=== PATIENT | female | born 2000 | race African-American/Black ===

== ENCOUNTER 2018-02-22 23:52 | Emergency (ER) | payer OTHER, SELFPAY ==
[2018-02-23] MEDS ORDERED: Acetaminophen 1,000 MG in Premix Bag 1 BAG IVPB SCH (00:15)
[2018-02-23 00:16] LABS: #Basophils 0.1 thou/uL (0.0-0.2); #Eosinphils 0.1 thou/uL (0.0-0.7); #Lymphocytes 2.8 thou/uL (1.20-3.40); #Monocytes 1.1 thou/uL (0.11-0.59); #Neutrophils 14.8 thou/uL (1.40-6.50); %Basophils 0.3 % (0.0-1.0); %Eosinophils 0.4 % (0.0-10.0); %Monocytes 5.6 % (0.0-4.0); %Neutrophils 78.7 % (31.0-61.0); Mean Corpuscular HGB CONC 35.8 g/dL (32.0-36.0); Mean Corpuscular Volume 83.6 fL (78.0-98.0); Mean Platelet Volume 7.3 fL (7.4-10.4); Platelet Count 321 thou/uL (130-400); RBC Distribution Width 12.5 % (11.5-14.5); Red Blood Cell (RBC) Count 4.35 mill/uL (4.00-5.20); White Blood Cell (WBC) Count 18.8 thou/uL (4.8-10.8)
[2018-02-23 00:31] LABS: ALT (SGPT) 28 U/L (8-55); AST (SGOT) 39 U/L (5-30); Albumin 4.5 g/dL (3.5-5.0); Alkaline Phosphatase 63 U/L (40-150); Anion Gap 14 mmol/L (10-20); BUN (Urea Nitrogen) 10 mg/dL (8.4-21.0); Bilirubin, Total 0.5 mg/dL (0.2-1.2); Calc. Creatinine Clearance 0 mL/min (70-130); Calcium 9.3 mg/dL (7.8-10.44); Carbon Dioxide 21 mmol/L (22-29); Chloride 105 mmol/L (98-107); Estimated GFR-MDRD Greater than 90; Globulin 2.8 g/dL (2.4-3.5); Glucose 143 mg/dL (70-105); Lipase 10 U/L (8-78); Potassium 3.4 mmol/L (3.5-5.1); Protein, Total 7.3 g/dL (6.0-8.3); Sodium 137 mmol/L (136-145)
[2018-02-23 00:33] LABS: BHCG - Serum Negative (NEGATIVE); Pregs Control Background? CLEAR/WHITE (CLR/WHITE); Pregs Control Bar Appear? YES (CONTROL BAR)
[2018-02-23 00:34] LABS: INR-International Normal Ratio 1.1; PTT 25.5 SEC (22.9-36.1)
[2018-02-23] MEDS ORDERED: Lidocaine 1% w/Epinephrine 1:100K 20 ML VIAL ONE (00:46)
[2018-02-23] MEDS ORDERED: Ketorolac Tromethamine 60 MG/2 ML VIAL ONE (00:46)
[2018-02-23] MEDS ORDERED: CEFAZOLIN 2 GM/50 ML BAG ONE (00:47)
[2018-02-23] MEDS ORDERED: Adacel (T-DAP) 0.5 ML VIAL ONE (00:47)
[2018-02-23] MEDS ORDERED: Proparacaine 0.5% Opth 15 ML BOT ONE (01:05)
[2018-02-23] MEDS ORDERED: Fluorescein Opthalmic Strip ONE (01:05)
[2018-02-23 01:35] LABS: Acetaminophen Less than 6.0 mcg/mL (10.0-30.0); Alcohol Less than 10 mg/dL (Less than 10); Salicylate Less than 8.0 mg/dL (15.0-30.0)
[2018-02-23] MEDS ORDERED: Morphine 2 MG/ML SYRINGE ONE (02:05)
[2018-02-23] MEDS ORDERED: Ondansetron PF 4 MG/2 ML Vial ONE (02:05)
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
== END 2018-02-23 03:15 | disposition short-term general hospital (02) ==
LOC: ERS 23:52
DX: S02.19XA Other fracture of base of skull, initial encounter for closed fracture (principal); S42.001A Fracture of unspecified part of right clavicle, initial encounter for closed fracture; S05.41XA Penetrating wound of orbit with or without foreign body, right eye, initial encounter; V43.52XA Car driver injured in collision with other type car in traffic accident, initial encounter; Y92.411 Interstate highway as the place of occurrence of the external cause
CPT/HCPCS: 12014; 70450; 70486; 71260; 72125; 74177; 80053; 80307; 83605; 83690; 84703; 85025; 85610; 85730; 90471; 90715; 93005; 96365; 96375; G0390; J0131; J1885; J2001; J2270; J2405

== ENCOUNTER 2018-06-24 12:34 | Emergency (ER) | payer SELFPAY ==
[2018-06-24 13:14] LABS: Bilirubin Negative (Negative); Blood, Urine Negative (Negative); Clarity CLOUDY (Clear); Glucose, Urine (Dipstick) Negative (Negative); Leukocyte Negative (Negative); Nitrite Negative (Negative); Protein, Urine (Dipstick) 30 mg/dL (Neg-Trace); Specific Gravity, Urine 1.031 (1.002-1.036)
[2018-06-24 13:16] LABS: Bacteria/HPF None Seen HPF (None Seen); RBC/HPF 0-3 HPF (0-3)
[2018-06-24 13:19] LABS: Pathc Cast-AUWi Flag 3.53 (0-2.49)
[2018-06-24 13:21] LABS: Pregnancy Test - Urine (BHCG) Negative (Negative); Pregu Control Background? CLEAR/WHITE (CLR/WHITE); Pregu Control Bar Appear? YES (CONTROL BAR); Specific Gravity 1.031 (1.002-1.036)
[2018-06-24 13:40] LABS: Hyaline Casts/LPF 0-3 HYALINE CAST LPF (0-3 Hyaline)
[2018-06-24 14:38] LABS: #Lymphocytes 1.5 thou/uL (1.20-3.40); #Monocytes 0.4 thou/uL (0.11-0.59); #Neutrophils 1.2 thou/uL (1.40-6.50); %Basophils 0.7 % (0.0-1.0); %Eosinophils 0.1 % (0.0-10.0); %Lymphocytes 48.9 % (28.0-48.0); %Monocytes 12.6 % (0.0-4.0); %Neutrophils 37.7 % (31.0-61.0); Hemoglobin 13.1 g/dL (12.0-16.0); Mean Corpuscular HGB CONC 36.2 g/dL (32.0-36.0); Mean Corpuscular Hemoglobin 30.6 pg (25.0-35.0); Mean Corpuscular Volume 84.7 fL (78.0-98.0); Mean Platelet Volume 7.5 fL (7.4-10.4); Platelet Count 211 thou/uL (130-400); RBC Distribution Width 12.1 % (11.5-14.5); Red Blood Cell (RBC) Count 4.29 mill/uL (4.00-5.20); White Blood Cell (WBC) Count 3.1 thou/uL (4.8-10.8)
[2018-06-24] MEDS ORDERED: Ketorolac Tromethamine 60 MG/2 ML VIAL ONE (14:51)
[2018-06-24 15:00] LABS: ALT (SGPT) 14 U/L (8-55); AST (SGOT) 22 U/L (5-34); Albumin 4.6 g/dL (3.5-5.0); Alkaline Phosphatase 58 U/L (40-150); Anion Gap 13 mmol/L (10-20); BUN (Urea Nitrogen) 8 mg/dL (7.0-18.7); Bilirubin, Total 0.5 mg/dL (0.2-1.2); Calc. Creatinine Clearance 0 mL/min (70-130); Calcium 9.3 mg/dL (7.8-10.44); Carbon Dioxide 28 mmol/L (22-29); Chloride 102 mmol/L (98-107); Estimated GFR-MDRD Greater than 90; Globulin 2.9 g/dL (2.4-3.5); Glucose 99 mg/dL (70-105); Potassium 3.5 mmol/L (3.5-5.1); Protein, Total 7.5 g/dL (6.0-8.3); Sodium 139 mmol/L (136-145)
--- NOTE | 2018-06-24 15:29 | CT ---
CT OF ABDOMEN AND PELVIS PERFORMED WITHOUT CONTRAST ENHANCEMENT: Date: 06/24/18 HISTORY: Right flank pain. FINDINGS: The lung bases are clear of infiltrates. The liver, spleen, pancreas, and gallbladder regions appear unremarkable given the limitations of a n oncontrast study. Right and left adrenal glands, and right and left kidneys are normal in size. There are no renal calc beth demonstrated and there is no evidence for obstruction. Ureters are nondilated and I do not see an y ureteral calculus. There is no significant periaortic or mesenteric adenopathy. Small mesenteric nodes are nonspecific. CT of pelvis was performed without contrast enhancement. The low position of the cecum makes it diffi cult to evaluate, but what appears to be visualized portions of the appendix are unremarkable. No barbie e fluid. IMPRESSION: No evidence of renal or ureteral calculi. No acute abnormalities of the abdomen or pelvis. Appendix i s not well identified, but I see no CT evidence for appendicitis. POS: [facility]
== END 2018-06-24 15:46 | disposition home or self-care (01) ==
LOC: ERS 12:34
DX: M54.5 Low back pain (principal); R11.2 Nausea with vomiting, unspecified
CPT/HCPCS: 36415; 74176; 80053; 81003; 81015; 81025; 85025; 96372; J1885

== ENCOUNTER 2018-11-06 15:52 | Emergency (ER) | payer SELFPAY ==
[~2018-11-06 15:52] MED LIST: ISOVUE-370 76%-LOCM 1 ML ONE
[2018-11-06] MEDS ORDERED: Morphine 4 MG/ML VIAL ONE (16:02)
[2018-11-06] MEDS ORDERED: Ondansetron PF 4 MG/2 ML Vial ONE (16:02)
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
[2018-11-06 16:25] LABS: #Basophils 0.1 thou/uL (0.0-0.2); #Eosinphils 0.1 thou/uL (0.0-0.7); #Lymphocytes 2.5 thou/uL (1.20-3.40); #Monocytes 0.6 thou/uL (0.11-0.59); #Neutrophils 3.4 thou/uL (1.40-6.50); %Basophils 1.2 % (0.0-1.0); %Eosinophils 1.3 % (0.0-10.0); %Lymphocytes 37.1 % (28.0-48.0); %Monocytes 9.3 % (0.0-4.0); %Neutrophils 51.1 % (31.0-61.0); Hemoglobin 12.7 g/dL (12.0-16.0); Mean Corpuscular HGB CONC 36.5 g/dL (32.0-36.0); Mean Corpuscular Hemoglobin 31.2 pg (25.0-35.0); Mean Corpuscular Volume 85.4 fL (78.0-98.0); Mean Platelet Volume 7.4 fL (7.4-10.4); Platelet Count 327 thou/uL (130-400); RBC Distribution Width 12.6 % (11.5-14.5); Red Blood Cell (RBC) Count 4.06 mill/uL (4.00-5.20); White Blood Cell (WBC) Count 6.6 thou/uL (4.8-10.8)
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
[2018-11-06 16:28] LABS: BHCG - Serum Negative (NEGATIVE); Pregs Control Background? CLEAR/WHITE (CLR/WHITE); Pregs Control Bar Appear? YES (CONTROL BAR)
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
[2018-11-06 16:32] LABS: ALT (SGPT) 14 U/L (8-55); AST (SGOT) 17 U/L (5-34); Albumin 4.3 g/dL (3.5-5.0); Alkaline Phosphatase 53 U/L (40-150); Anion Gap 12 mmol/L (10-20); BUN (Urea Nitrogen) 7 mg/dL (7.0-18.7); Bilirubin, Total 0.5 mg/dL (0.2-1.2); Calc. Creatinine Clearance 0 mL/min (70-130); Calcium 9.4 mg/dL (7.8-10.44); Carbon Dioxide 22 mmol/L (22-29); Chloride 107 mmol/L (98-107); Estimated GFR-MDRD Greater than 90; Globulin 2.3 g/dL (2.4-3.5); Glucose 95 mg/dL (70-105); Lipase 7 U/L (8-78); Potassium 3.9 mmol/L (3.5-5.1); Protein, Total 6.6 g/dL (6.0-8.3); Sodium 137 mmol/L (136-145)
[2018-11-06] MEDS ORDERED: Ketorolac Tromethamine 30 MG/ML VIAL ONE (16:56)
[2018-11-06] MEDS ORDERED: Adacel (T-DAP) 0.5 ML SYRINGE ONE (17:11)
== END 2018-11-06 17:30 | disposition critical access hospital (66) ==
LOC: ERS 15:52
DX: S70.11XA Contusion of right thigh, initial encounter (principal); S40.212A Abrasion of left shoulder, initial encounter; S40.211A Abrasion of right shoulder, initial encounter; M54.5 Low back pain; Y04.8XXA Assault by other bodily force, initial encounter
CPT/HCPCS: 70450; 71260; 72125; 74177; 80053; 83605; 83690; 84703; 85025; 90471; 90715; 93005; 96374; 96375; G0390; J1885; J2270; J2405

== ENCOUNTER 2018-11-25 11:37 | Observation (INO) | payer SELFPAY ==
[2018-11-25] MEDS ORDERED: Morphine 4 MG/ML VIAL ONE ×2 (11:54→12:36)
[2018-11-25] MEDS ORDERED: Ondansetron PF 4 MG/2 ML Vial ONE ×2 (11:55→12:36)
[2018-11-25 12:24] LABS: #Basophils 0.1 thou/uL (0.0-0.2); #Eosinphils 0.1 thou/uL (0.0-0.7); #Lymphocytes 1.7 thou/uL (1.20-3.40); #Monocytes 0.8 thou/uL (0.11-0.59); #Neutrophils 5.4 thou/uL (1.40-6.50); %Basophils 0.6 % (0.0-1.0); %Eosinophils 0.7 % (0.0-10.0); %Lymphocytes 21.6 % (28.0-48.0); %Monocytes 9.5 % (0.0-4.0); %Neutrophils 67.5 % (31.0-61.0); Hemoglobin 12.4 g/dL (12.0-16.0); Mean Corpuscular HGB CONC 36.3 g/dL (32.0-36.0); Mean Corpuscular Hemoglobin 31.1 pg (25.0-35.0); Mean Corpuscular Volume 85.8 fL (78.0-98.0); Mean Platelet Volume 7.4 fL (7.4-10.4); Platelet Count 273 thou/uL (130-400); RBC Distribution Width 12.7 % (11.5-14.5); Red Blood Cell (RBC) Count 3.99 mill/uL (4.00-5.20)
[2018-11-25 12:31] LABS: INR-International Normal Ratio 1.1; PTT 33.4 SEC (22.9-36.1); Prothrombin Time 13.9 SEC (12.0-14.7)
[2018-11-25 12:39] LABS: ALT (SGPT) 16 U/L (8-55); AST (SGOT) 20 U/L (5-34); Albumin 4.6 g/dL (3.5-5.0); Alkaline Phosphatase 52 U/L (40-150); Anion Gap 11 mmol/L (10-20); BUN (Urea Nitrogen) 11 mg/dL (7.0-18.7); Bilirubin, Total 0.6 mg/dL (0.2-1.2); CK (CPK) 532 U/L (29-168); Calc. Creatinine Clearance 0 mL/min (70-130); Calcium 9.3 mg/dL (7.8-10.44); Carbon Dioxide 22 mmol/L (22-29); Chloride 106 mmol/L (98-107); Estimated GFR-MDRD Greater than 90; Globulin 2.3 g/dL (2.4-3.5); Glucose 100 mg/dL (70-105); Potassium 3.4 mmol/L (3.5-5.1); Protein, Total 6.9 g/dL (6.0-8.3); Sodium 136 mmol/L (136-145)
[2018-11-25 12:41] LABS: BHCG - Serum Negative (NEGATIVE); Pregs Control Background? CLEAR/WHITE (CLR/WHITE); Pregs Control Bar Appear? YES (CONTROL BAR)
[2018-11-25 13:42] LABS: Bilirubin Negative (Negative); Blood, Urine 3+ (Negative); Clarity Clear (Clear); Glucose, Urine (Dipstick) Normal (Negative); Leukocyte 25 Leu/uL (Negative); Nitrite Negative (Negative); Protein, Urine (Dipstick) 30 mg/dL (Neg-Trace); RBC/HPF Greater than 50 HPF (0-3)
[2018-11-25 13:45] LABS: Bacteria/HPF 1+ HPF (None Seen)
[2018-11-25] MEDS ORDERED: Fentanyl 100 MCG/2 ML VIAL ONE ×2 (13:46→15:51)
--- NOTE | 2018-11-25 14:17 | ULT ---
Exam: Pelvic ultrasound including Transabdominal, Transvaginal, And Vascular Duplex with color and spectral Doppler imaging: HISTORY: Active vaginal bleeding COMPARISON: None FINDINGS: The uterus is 6.9 x 3.5 x 4.1 cm Endometrial thickness:0.7 cm Right ovary:2.9 x 1.3 x 3.3 cm Left ovary:2.6 x 1.5 x 3.0 cm No abscess or significant abnormal fluid collection. Vascular duplex examination demonstrates no evidence for ovarian torsion IMPRESSION: No significant acute process within the pelvis
--- NOTE | 2018-11-25 15:32 | CT ---
EXAM: Abdomen and pelvic CT scan without contrast: HISTORY: Abdominal pain and cramping vomiting blood COMPARISON: 11/06/2018 FINDINGS: The visualized lung bases are clear. Liver: Unremarkable. Gallbladder:Unremarkable. Pancreas:Unremarkable Spleen:Unremarkable. Adrenal glands:Unremarkable. Kidneys:No renal calculus or acute obstruction. No solid or cystic renal mass. No evidence for bowel obstruction. No CT evidence for acute appendicitis. The urinary bladder is unremarkable. Trace fluid in the pelvis. No abscess, adenopathy, or abnormal fluid collection within the abdomen or pelvis. IMPRESSION: Trace fluid in the pelvis. No significant acute process.
[2018-11-25] MEDS ORDERED: Pantoprazole 40 MG VIAL ONE (16:05)
[2018-11-25] MEDS ORDERED: Ondansetron ODT 4 MG TAB SL PRN (19:15)
[2018-11-25] MEDS ORDERED: Ondansetron PF 4 MG/2 ML Vial IVP PRN (19:15)
[2018-11-25] MEDS ORDERED: Sodium Chloride 0.9% 1,000 ML IV SCH (19:15)
[2018-11-25] MEDS ORDERED: Morphine 2 MG/ML SYRINGE SLOW IVP PRN (19:16)
[2018-11-25] MEDS ORDERED: Loperamide HCl 2 MG CAP PO PRN (19:35)
[2018-11-25] MEDS ORDERED: Senokot S 8.6-50 MG TAB PO PRN (19:35)
[2018-11-25] MEDS ORDERED: Zolpidem Tartrate 5 MG TAB PO PRN (19:35)
[2018-11-25] MEDS ORDERED: hydrALAZINE 20 MG/ML VIAL SLOW IVP PRN (19:35)
[2018-11-25] MEDS ORDERED: Sodium Chloride 0.65% Nasal 44 ML BOT EA NARE PRN (19:35)
[2018-11-25] MEDS ORDERED: Artificial Tears 18 DROP/0.9 ML EA EYE PRN (19:35)
[2018-11-25] MEDS ORDERED: Acetaminophen 325 MG TAB PO PRN (19:35)
[2018-11-25] MEDS ORDERED: Diabetic Tussin 200 MG/10 ML UDCUP PO PRN (19:35)
[2018-11-25] MEDS ORDERED: Ondansetron ODT 4 MG TAB PO PRN (19:35)
[2018-11-25] MEDS ORDERED: Loratadine 10 MG TAB PO PRN (19:35)
[2018-11-25] MEDS ORDERED: Bisacodyl 10 MG SUPP PR PRN (19:35)
[2018-11-25] MEDS ORDERED: Calcium Carbonate 500 MG ChewTAB PO PRN (19:35)
[2018-11-25] MEDS ORDERED: HYDROcodone/Acetaminophen 5/325 mg Tablet PO PRN (19:35)
[2018-11-25] MEDS ORDERED: Cepastat Lozenges 1 LOZ PO PRN (19:35)
[2018-11-25 19:38] VITALS: BMI 31.1
--- NOTE | 2018-11-25 20:22 | HP ---
PRIMARY CARE PHYSICIAN: [facility] Call admission. REASON FOR ADMISSION: Abdominal pain and hematemesis. HISTORY OF PRESENT ILLNESS: A 18-year-old female, who reports that about a month ago she had a miscarriage. She did not go to follow up afterward. She was having brownish, thick, foul-smelling vaginal discharge. She was expecting her menstrual cycle in next week, but she started bleeding this week. She was having lower abdominal pain since miscarriage. She was not having any fever or chills. She did not notice any melenic stool or any hematochezia. She denies any epigastric abdominal pain. Lately, she was taking Advil PM on every day basis twice a day for sleep and pain relief, but her pain was not improving. Her intensity of pain in lower part of abdomen is about 10/10. In the emergency room, the patient had ultrasound of pelvis and CT abdomen and pelvis, which essentially were not showing any acute process. Pelvic ultrasound was unremarkable. There was no ovarian torsion. Abdomen and pelvis CT scan showed free fluid in the pelvic area without any other process. The patient was requiring several doses of pain medication. She was also treated with Protonix 40 mg and Zofran, and subsequently the patient was admitted to the hospital. When they checked stool for guaiac in the emergency room, it was positive and the patient also reported that she was having hematemesis. She was throwing up blood at home, and she was feeling weak and dizzy. In the emergency room, she was hemodynamically stable. Her routine blood test showed normal hemoglobin. REVIEW OF SYSTEMS: CONSTITUTIONAL: Negative for weight loss or gain, ability to conduct usual activities. SKIN: Negative for rash, itching. EYES: Negative for double vision, pain. ENT/MOUTH: Negative for nose bleeding, neck stiffness, pain, tenderness. CARDIOVASCULAR: Negative for palpitations, dyspnea on exertion, orthopnea. RESPIRATORY: Negative for shortness of breath, wheezing, cough, hemoptysis, fever or night sweats. GASTROINTESTINAL: Negative for poor appetite, abdominal pain, heartburn, nausea, vomiting, constipation, or diarrhea. GENITOURINARY: Negative for urgency, frequency, dysuria, nocturia. MUSCULOSKELETAL: Negative for pain, swelling. NEUROLOGIC/PSYCHIATRIC: Negative for anxiety, depression. ALLERGY/IMMUNOLOGIC: Negative for skin rash, bleeding tendency. Please see my HPI for pertinent positives and negatives. All other review of systems reviewed and negative except as mentioned in HPI. PAST MEDICAL HISTORY: Reviewed and negative. PAST SURGICAL HISTORY: Reviewed and negative. PAST PSYCHIATRIC HISTORY: Reviewed and negative. SOCIAL HISTORY: The patient denies any tobacco abuse. She denies any alcohol abuse. She denies any other illicit drug abuse. FAMILY HISTORY: No strong family history of premature coronary artery disease, stroke, or cancer. ALLERGIES: NO KNOWN DRUG ALLERGIES. CURRENT HOME MEDICATIONS: The patient was lately taking Advil PM for sleep. EMERGENCY ROOM COURSE: The patient was given morphine x2, fentanyl 50 mcg x2, IV fluid, Protonix 40 mg, and Zofran 4 mg x2. PHYSICAL EXAMINATION: VITAL SIGNS: Currently, blood pressure 112/56, pulse 72, respiratory rate 16, temperature 98.7, saturation 100% on room air, weight 74.8 kg. GENERAL: The patient is currently alert and oriented, in no acute distress. HEENT: Head, normocephalic and atraumatic. Eyes, pupils round and reactive to light. Extraocular muscle intact. ENT, oropharynx within normal limits. Moist mucous membranes. No oral lesion. No pharyngeal erythema. No exudate. NECK: Supple. No JVD. No thyromegaly. No carotid bruit. No jugular venous distention. LUNGS: Clear to auscultation without any rhonchi or rales. CARDIAC: S1 and S2 regular. No murmur. No gallop. No rub. ABDOMEN: The patient does have lower abdominal discomfort. No organomegaly. No mass. No epigastric tenderness. No Etienne sign. No peritoneal sign. BACK: Unremarkable. No CVA tenderness. EXTREMITIES: Upper extremities, passive movement of all joints are normal. Lower extremities, no edema. Good distal pulsation. SKIN: No skin rash. HEMATOLOGICAL SYSTEM: No lymphadenopathy. PSYCHIATRIC: Normal affect. SIGNIFICANT LABORATORY DATA: CT abdomen and pelvis done today in the emergency room showed trace fluid in the pelvis. No significant acute process. Pelvic ultrasound was unremarkable. CBC; WBC 8.0, hemoglobin 12.4, platelet 273. INR 1.1. BMP; sodium 136, potassium 3.4, chloride 106, carbon dioxide 22, anion gap 11, BUN 11, creatinine 0.65, glucose 100, calcium 9.3. LFT; AST 20, ALT 16, alkaline phosphatase 52, albumin 4.6. test negative. CK 532. Urinalysis; bacteria 1+, wbc 4 to 6. ASSESSMENT: 1. Lower abdominal pain, etiology uncertain. 2. Recent miscarriage, vaginal discharge, and menstrual irregularity. 3. Hypokalemia. 4. Mild rhabdomyolysis. 5. Patient history of hematemesis. PLAN: 1. Observation to medical floor. Gastroenterology consultation for guaiac-positive stool and history of hematemesis in view of her NSAID abuse. [employer] consultation in view of recent miscarriage, vaginal discharge, and menstrual irregularity. Clear liquid diet. We will repeat CBC tomorrow. Potassium chloride supplementation. Pain control with morphine on a p.r.n. basis. Continue IV fluid NS at 100 mL/hr. 2. Deep venous thrombosis prophylaxis, SCD boots. 3. Gastrointestinal prophylaxis, Protonix 40 mg IV daily. CODE STATUS: The patient is full code. The patient does not have any surrogate decision maker. DISPOSITION PLAN: Based on clinical course. Job ID: [id number]
[2018-11-25] MEDS: Morphine 2 MG/ML SYRINGE SLOW IVP PRN (20:24)
[2018-11-25] MEDS: Sodium Chloride 0.9% 1,000 ML IV SCH (20:30)
[2018-11-25] MEDS ORDERED: Famotidine 20 MG TAB PO SCH (21:00)
[2018-11-26] MEDS: Ondansetron PF 4 MG/2 ML Vial IVP PRN ×2 (01:40→12:14)
[2018-11-26] MEDS: Morphine 2 MG/ML SYRINGE SLOW IVP PRN ×3 (02:31→12:08)
[2018-11-26 05:28] LABS: #Eosinphils 0.1 thou/uL (0.0-0.7); #Lymphocytes 2.1 thou/uL (1.20-3.40); #Monocytes 0.7 thou/uL (0.11-0.59); #Neutrophils 4.4 thou/uL (1.40-6.50); %Basophils 0.6 % (0.0-1.0); %Eosinophils 0.7 % (0.0-10.0); %Lymphocytes 28.7 % (28.0-48.0); %Monocytes 9.7 % (0.0-4.0); %Neutrophils 60.3 % (31.0-61.0); Hemoglobin 11.1 g/dL (12.0-16.0); Mean Corpuscular HGB CONC 36.3 g/dL (32.0-36.0); Mean Corpuscular Hemoglobin 31.1 pg (25.0-35.0); Mean Corpuscular Volume 85.6 fL (78.0-98.0); Mean Platelet Volume 7.4 fL (7.4-10.4); Platelet Count 248 thou/uL (130-400); RBC Distribution Width 12.6 % (11.5-14.5); Red Blood Cell (RBC) Count 3.56 mill/uL (4.00-5.20); White Blood Cell (WBC) Count 7.2 thou/uL (4.8-10.8)
[2018-11-26 05:44] LABS: Anion Gap 11 mmol/L (10-20); BUN (Urea Nitrogen) 8 mg/dL (7.0-18.7); Calc. Creatinine Clearance 171 mL/min (70-130); Calcium 8.7 mg/dL (7.8-10.44); Carbon Dioxide 23 mmol/L (22-29); Chloride 106 mmol/L (98-107); Estimated GFR-MDRD Greater than 90; Glucose 89 mg/dL (70-105); Potassium 3.2 mmol/L (3.5-5.1); Sodium 137 mmol/L (136-145)
[2018-11-26] MEDS: Sodium Chloride 0.9% 1,000 ML IV SCH ×2 (06:48→17:19)
[2018-11-26] MEDS ORDERED: Pantoprazole 40 MG VIAL IVP SCH (09:00)
--- NOTE | 2018-11-26 11:44 | CON ---
DATE OF CONSULTATION: 11/26/2018 ADMITTING PHYSICIAN: Armand Steinist. REASON FOR CONSULTATION: Recent miscarriage, vaginal discharge. HISTORY OF PRESENT ILLNESS: Ms. Manzo is a 18-year-old black G2, AB2, who was admitted with intractable abdominal pain. Of note is the fact that she states she had a spontaneous miscarriage on October 30. She did not require D and C at that time and states that she thinks she passed all the tissue. She presents now complaining of abdominal pain and vomiting with blood. She states that she has bled intermittently since the time of her miscarriage. PAST OBSTETRICAL HISTORY: Includes a spontaneous miscarriage in 2017, not requiring D and C, along with her most recent reported miscarriage. She states that she has never been to a offset press operator and had a Pap smear. PAST MEDICAL HISTORY: Persistent anemia. PAST SURGICAL HISTORY: Auricular cyst removed from right ear. CURRENT MEDICATIONS: Multiple doses of Advil p.m. as well as melatonin. ALLERGIES: NO KNOWN ALLERGIES. SOCIAL HISTORY: She states she drinks socially and smokes approximately 1 pack of cigarettes per week. FAMILY HISTORY: Unremarkable for pelvic malignancy. REVIEW OF SYSTEMS: She denies fever or chills. PHYSICAL EXAMINATION: VITAL SIGNS: This morning, blood pressure 107/64, pulse 75, respirations 16 with an O2 saturation of 99% on room air. GENERAL: She is pleasant and in no acute distress. ABDOMEN: Soft and nontender. There is no guarding or rebound. PELVIC: Performed at the bedside. Speculum exam shows what appears to be menstrual blood in the vault. The cervix is easily seen and there are no gross lesions. On bimanual exam, her uterus appears to be normal size. She is uncomfortable with the exam, but I do not elicit any acute tenderness. LABORATORY DATA: On admission, her white count is 8.0 with a hemoglobin of 12.4 and 34.3, platelet count is 273,000. test is negative. Pelvic USG done 11/25/2018 demonstrated a uterus that was 6.9 x 3.5 x 4.1 in size. Her endometrial thickness was 0.7. There was no evidence of ovarian torsion in either ovary. ASSESSMENT: 1. Abdominal pain with hematemesis, likely related to NSAID overuse. 2. History of recent miscarriage. Ultrasound and beta-hCG on admission were within normal limits. Only a small amount of bleeding is seen at this time. PLAN: I have obtained a VP3 vaginal panel as well as GC and Chlamydia to rule out any type of infection. We will follow while she is here with results. Job ID: [id number] MTDD
[2018-11-26 16:43] VITALS: BP 113/71; TEMP 98.5
--- NOTE | 2018-11-27 02:21 | DIS ---
DATE OF ADMISSION: 11/25/2018 DATE OF DISCHARGE: 11/26/2018 DISCHARGE DIAGNOSES: 1. Abdominal pain, resolving. 2. Nausea and vomiting, resolved. 3. Hematemesis, likely due to Abi-William tear. 4. Status post recent miscarriage. 5. Hypokalemia, mild. CONSULTATION: Dr. Ramey with [facility]. PERTINENT LABORATORY AND X-RAY FINDINGS: Potassium ranged between 3.2 to 3.4. Serum beta-HCG negative on 11/25/2018. CBC showed a hemoglobin ranging between 11.1 to 12.4. Stool Hemoccult positive x1. Vaginal screen dated 11/26/2018, negative. Pelvic ultrasound dated 11/25/2018, showed no acute process. CT of the abdomen and pelvis dated 11/25/2018, showed no acute process. HOSPITAL COURSE: The patient was observed on the medical floor after initially presenting with abdominal pain with associated nausea, vomiting, and hematemesis. The patient was given IV fluids and underwent serum beta-HCG testing which was negative. The patient with recent miscarriage, evaluated by the [facility]. The patient underwent vaginitis screen which was negative as well as pelvic ultrasound and abdominal CT showing no acute process. Likely, the patient's presentation consistent with Abi-William tear with recommendations for H2 mary and antiemetics as needed. The patient tolerated clear liquids without recurrence. Overall, the patient remained clinically stable during the hospital observation and ready for discharge on 11/26/2018. I have examined the patient at the time of discharge and discussed followup instructions. The patient verbalized understanding and in agreement, ready for discharge on 11/26/2018. DISCHARGE MEDICATIONS: 1. Pepcid 20 mg p.o. b.i.d. p.r.n. 2. Zofran ODT 4 mg p.o. q.6 hours p.r.n. nausea, vomiting. FOLLOWUP: The patient may follow up with Dr. Ramey and to call his office for appointment time and date. CONDITION ON DISCHARGE: Stable. ACTIVITY: Ad-jose antonio. DIET: Clear liquids x24 hours and then advance as tolerated. CODE STATUS: Full. DISPOSITION: Home on 11/26/2018. Job ID: [id number]
[2018-11-28 18:22] LABS: Chlamydia by PCR Not Detected (NotDetected); GC by PCR Not Detected (NotDetected)
--- NOTE | 2018-11-30 12:04 | PDOC.EVN ---
Event Note - Event Note Event Note: OBGYN oncall Lab check from last eval GC and ChL are negative
== END 2018-11-26 17:30 | disposition home or self-care (01) ==
LOC: ERS 11:37 → SURG A 16:30
PROVIDERS: ADMIT Internal Medicine; ATTEND Internal Medicine
DX: R10.30 Lower abdominal pain, unspecified (principal); K92.0 Hematemesis; E87.6 Hypokalemia; N89.8 Other specified noninflammatory disorders of vagina; M62.82 Rhabdomyolysis; F17.210 Nicotine dependence, cigarettes, uncomplicated
CPT/HCPCS: 36415; 74176; 76856; 80048; 80053; 81003; 81015; 82274; 82550; 84703; 85025; 85610; 85730; 87480; 87491; 87510; 87591; 87660; 96361; 96374; 96375; 96376; C9113; G0378; J2270; J2405; J3010

== ENCOUNTER 2019-01-17 16:25 | Emergency (ER) | payer SELFPAY ==
[2019-01-17] MEDS ORDERED: Ondansetron PF 4 MG/2 ML Vial ONE (16:49)
[2019-01-17] MEDS ORDERED: Famotidine/PF 20 mg/2ml Vial ONE (16:49)
[2019-01-17 16:55] LABS: #Basophils 0.1 thou/uL (0.0-0.2); #Eosinphils 0.1 thou/uL (0.0-0.7); #Monocytes 0.7 thou/uL (0.11-0.59); #Neutrophils 3.3 thou/uL (1.40-6.50); %Eosinophils 1.4 % (0.0-10.0); %Lymphocytes 41.8 % (28.0-48.0); %Monocytes 9.7 % (0.0-4.0); %Neutrophils 46.1 % (31.0-61.0); Hemoglobin 12.2 g/dL (12.0-16.0); Mean Corpuscular HGB CONC 35.2 g/dL (32.0-36.0); Mean Corpuscular Hemoglobin 30.2 pg (25.0-35.0); Mean Corpuscular Volume 85.8 fL (78.0-98.0); Mean Platelet Volume 7.1 fL (7.4-10.4); Platelet Count 277 thou/uL (130-400); RBC Distribution Width 12.5 % (11.5-14.5); Red Blood Cell (RBC) Count 4.03 mill/uL (4.00-5.20); White Blood Cell (WBC) Count 7.2 thou/uL (4.8-10.8)
[2019-01-17 17:07] LABS: BHCG - Serum Negative (NEGATIVE); Pregs Control Background? CLEAR/WHITE (CLR/WHITE); Pregs Control Bar Appear? YES (CONTROL BAR)
[2019-01-17] MEDS ORDERED: Haloperidol Lactate 5 MG/ML VIAL ONE (17:23)
[2019-01-17 17:27] LABS: ALT (SGPT) 13 U/L (8-55); AST (SGOT) 19 U/L (5-34); Albumin 4.7 g/dL (3.5-5.0); Alkaline Phosphatase 57 U/L (40-100); Anion Gap 12 mmol/L (10-20); BUN (Urea Nitrogen) 5 mg/dL (7.0-18.7); Bilirubin, Total 0.7 mg/dL (0.2-1.2); CK (CPK) 316 U/L (29-168); Calc. Creatinine Clearance 0 mL/min (70-130); Calcium 9.2 mg/dL (7.8-10.44); Carbon Dioxide 25 mmol/L (22-29); Chloride 106 mmol/L (98-107); Estimated GFR-MDRD Greater than 90; Globulin 2.5 g/dL (2.4-3.5); Glucose 104 mg/dL (70-105); Lipase 4 U/L (8-78); Potassium 3.3 mmol/L (3.5-5.1); Protein, Total 7.2 g/dL (6.0-8.3); Sodium 140 mmol/L (136-145)
[2019-01-17 17:28] LABS: Acetaminophen Less than 6.0 mcg/mL (10.0-30.0); Alcohol Less than 10 mg/dL (Less than 10); Salicylate Less than 8.0 mg/dL (15.0-30.0)
[2019-01-17 19:01] LABS: Bacteria/HPF 2+ HPF (None Seen); Bilirubin Negative (Negative); Blood, Urine 3+ (Negative); Clarity Turbid (Clear); Glucose, Urine (Dipstick) Normal (Negative); Leukocyte 75 Leu/uL (Negative); Nitrite Negative (Negative); Protein, Urine (Dipstick) 50 mg/dL (Neg-Trace); RBC/HPF Greater than 50 HPF (0-3); Urobilinogen Normal mg/dL (Less than 2)
[2019-01-17 19:11] LABS: Amphetamine Not Detected (NotDetected); Barbiturates Screen Not Detected (NotDetected); Benzodiazepine Screen Not Detected (NotDetected); Cocaine Metabolite Screen Not Detected (NotDetected); Medtox Control Line Valid? VALID (VALID); Medtox Reader # READER 4; Methadone Not Detected (NotDetected); Methamphetamine Not Detected (NotDetected); Opiate Screen Not Detected (NotDetected); Oxycodone Screen Not Detected (NotDetected); Phencyclidine (PCP) Not Detected (NotDetected); THC/Cannabinoid Screen Detected (NotDetected); Tricyclic Screen Not Detected (NotDetected)
== END 2019-01-17 18:41 | disposition home or self-care (01) ==
LOC: ERS 16:25
DX: R10.30 Lower abdominal pain, unspecified (principal); R11.2 Nausea with vomiting, unspecified; F32.9 Major depressive disorder, single episode, unspecified
CPT/HCPCS: 80053; 80306; 80307; 81003; 81015; 82550; 83605; 83690; 84703; 85025; 94760; 96361; 96372; 96374; 96375; J0500; J1630; J2405; S0028

== ENCOUNTER 2019-02-14 19:11 | Emergency (ER) | payer SELFPAY ==
[2019-02-14] MEDS ORDERED: Acetaminophen 325 MG TAB ONE (20:24)
[2019-02-14 20:31] LABS: #Basophils 0.1 thou/uL (0.0-0.2); #Monocytes 0.5 thou/uL (0.11-0.59); #Neutrophils 3.6 thou/uL (1.40-6.50); %Basophils 1.1 % (0.0-1.0); %Eosinophils 0.8 % (0.0-10.0); %Lymphocytes 32.2 % (28.0-48.0); %Monocytes 8.6 % (0.0-4.0); %Neutrophils 57.3 % (31.0-61.0); Hemoglobin 12.6 g/dL (12.0-16.0); Mean Corpuscular HGB CONC 36.1 g/dL (32.0-36.0); Mean Corpuscular Hemoglobin 30.9 pg (25.0-35.0); Mean Corpuscular Volume 85.8 fL (78.0-98.0); Mean Platelet Volume 7.3 fL (7.4-10.4); Platelet Count 284 thou/uL (130-400); RBC Distribution Width 12.1 % (11.5-14.5); Red Blood Cell (RBC) Count 4.09 mill/uL (4.00-5.20); White Blood Cell (WBC) Count 6.3 thou/uL (4.8-10.8)
[2019-02-14 20:42] LABS: Bilirubin Negative (Negative); Blood, Urine 3+ (Negative); Clarity Turbid (Clear); Glucose, Urine (Dipstick) Normal (Negative); Leukocyte 250 Leu/uL (Negative); Nitrite Negative (Negative); Protein, Urine (Dipstick) 100 mg/dL (Neg-Trace); RBC/HPF Greater than 50 HPF (0-3); WBC/HPF Greater than 50 HPF (0-3)
[2019-02-14 20:52] LABS: Bacteria/HPF 1+ HPF (None Seen)
--- NOTE | 2019-02-14 21:32 | ULT ---
Exam: Pelvic ultrasound including Transabdominal, Transvaginal, And Vascular Duplex with color and spectral Doppler imaging: HISTORY: Positive home , pelvic pain, spotting and bleeding COMPARISON: None FINDINGS: The uterus is 6.7 x 3.7 x 4.5 cm Endometrial thickness:0.4 cm Right ovary:2.9 x 1.1 x 3.0 cm Left ovary:3.2 x 2.3 x 1.4 cm No abscess or significant abnormal fluid collection. No evidence for intrauterine . Trace amount of free cul-de-sac fluid. Vascular duplex examination demonstrates no evidence for ovarian torsion IMPRESSION: No evidence for intrauterine . Follow-up serum hCG's are suggested for further assessment if early or ectopic remains a clinical concern, short-term follow-up ultrasound study and several days to a week IV of benefit as well.
== END 2019-02-14 21:48 | disposition home or self-care (01) ==
LOC: ERS 19:11
DX: O23.40 Unspecified infection of urinary tract in pregnancy, unspecified trimester (principal); O20.9 Hemorrhage in early pregnancy, unspecified; Z3A.00 Weeks of gestation of pregnancy not specified; F17.210 Nicotine dependence, cigarettes, uncomplicated
CPT/HCPCS: 36415; 76856; 81003; 81015; 84702; 85025; 86900; 86901

== ENCOUNTER 2019-09-13 12:00 | Emergency (ER) | payer SELFPAY ==
[2019-09-13 12:38] LABS: Bacteria/HPF None Seen HPF (None Seen); Bilirubin Negative (Negative); Blood, Urine 3+ (Negative); Clarity Clear (Clear); Glucose, Urine (Dipstick) Normal (Negative); Leukocyte 75 Leu/uL (Negative); Nitrite Negative (Negative); Protein, Urine (Dipstick) 100 mg/dL (Neg-Trace); Squamous Epithelial 0-3 HPF (0-3); WBC/HPF 0-3 HPF (0-3)
[2019-09-13 12:39] LABS: Pregnancy Test - Urine (BHCG) Negative (Negative); Pregu Control Background? CLEAR/WHITE (CLR/WHITE); Pregu Control Bar Appear? YES (CONTROL BAR); Specific Gravity 1.023 (1.002-1.036)
[2019-09-13 12:44] LABS: #Basophils 0.1 thou/uL (0.0-0.2); #Eosinphils 0.1 thou/uL (0.0-0.7); #Monocytes 0.7 thou/uL (0.11-0.59); #Neutrophils 3.7 thou/uL (1.40-6.50); %Basophils 1.2 % (0.0-1.0); %Eosinophils 1.3 % (0.0-10.0); %Lymphocytes 30.4 % (21.0-51.0); %Monocytes 11.1 % (0.0-10.0); Hemoglobin 12.5 g/dL (12.0-16.0); Mean Corpuscular HGB CONC 36.3 g/dL (32.0-36.0); Mean Corpuscular Hemoglobin 31.3 pg (27.0-31.0); Mean Corpuscular Volume 86.3 fL (78.0-98.0); Mean Platelet Volume 7.2 fL (7.4-10.4); Platelet Count 262 thou/uL (130-400); RBC Distribution Width 12.7 % (11.5-14.5); Red Blood Cell (RBC) Count 3.99 mill/uL (4.20-5.40); White Blood Cell (WBC) Count 6.7 thou/uL (4.8-10.8)
[2019-09-13] MEDS ORDERED: Ketorolac Tromethamine 30 MG/ML VIAL ONE (13:04)
[2019-09-13] MEDS ORDERED: Ondansetron PF 4 MG/2 ML Vial ONE (13:04)
[2019-09-13 13:05] LABS: ALT (SGPT) 14 U/L (8-55); AST (SGOT) 20 U/L (5-34); Albumin 4.4 g/dL (3.5-5.0); Alkaline Phosphatase 51 U/L (40-110); Anion Gap 9 mmol/L (10-20); BUN (Urea Nitrogen) 10 mg/dL (7.0-18.7); Bilirubin, Total 0.6 mg/dL (0.2-1.2); Calc. Creatinine Clearance 0 mL/min (70-130); Calcium 9.1 mg/dL (7.8-10.44); Carbon Dioxide 26 mmol/L (22-29); Chloride 105 mmol/L (98-107); Estimated GFR-MDRD Greater than 90; Globulin 2.6 g/dL (2.4-3.5); Glucose 100 mg/dL (70-105); Lipase 10 U/L (8-78); Potassium 3.4 mmol/L (3.5-5.1); Sodium 137 mmol/L (136-145)
[2019-09-13] MEDS ORDERED: cefTRIAXone\\ROCEPHIN 250 MG VIAL ONE (14:49)
[2019-09-13] MEDS ORDERED: Azithromycin 250 MG TAB ONE (14:49)
[2019-09-15 15:42] LABS: Chlamydia by PCR Not Detected (NotDetected); GC by PCR Not Detected (NotDetected)
== END 2019-09-13 15:49 | disposition home or self-care (01) ==
LOC: ERS 12:00
DX: N93.9 Abnormal uterine and vaginal bleeding, unspecified (principal); R11.2 Nausea with vomiting, unspecified; F17.210 Nicotine dependence, cigarettes, uncomplicated
CPT/HCPCS: 36415; 80053; 81003; 81015; 81025; 83690; 85025; 87480; 87491; 87510; 87591; 87660; 96361; 96365; 96375; J0696; J1885; J2405

== ENCOUNTER 2019-10-04 01:35 | Emergency (ER) | payer SELFPAY | END 2019-10-04 02:08 | disposition home or self-care (01) | LOC: ERS 01:35 | DX: R49.0 Dysphonia (principal); F17.210 Nicotine dependence, cigarettes, uncomplicated | CPT/HCPCS: 99281 ==

== ENCOUNTER 2019-10-16 19:58 | Emergency (ER) | payer SELFPAY | END 2019-10-16 20:43 | disposition home or self-care (01) | LOC: ERS 19:58 | DX: H92.01 Otalgia, right ear (principal); F17.210 Nicotine dependence, cigarettes, uncomplicated | CPT/HCPCS: 99282 ==

== ENCOUNTER 2019-11-27 16:40 | Emergency (ER) | payer SELFPAY ==
[2019-11-27] MEDS ORDERED: Ondansetron PF 4 MG/2 ML Vial ONE (17:04)
[2019-11-27] MEDS ORDERED: Ketorolac Tromethamine 30 MG/ML VIAL ONE (17:04)
[2019-11-27 17:32] LABS: #Basophils 0.1 thou/uL (0.0-0.2); #Lymphocytes 2.4 thou/uL (1.20-3.40); #Monocytes 0.6 thou/uL (0.11-0.59); #Neutrophils 3.7 thou/uL (1.40-6.50); %Eosinophils 0.6 % (0.0-10.0); %Monocytes 8.2 % (0.0-10.0); %Neutrophils 55.2 % (42.0-75.0); Hemoglobin 12.5 g/dL (12.0-16.0); Mean Corpuscular HGB CONC 35.3 g/dL (32.0-36.0); Mean Corpuscular Hemoglobin 30.4 pg (27.0-31.0); Mean Platelet Volume 7.8 fL (7.4-10.4); Platelet Count 312 thou/uL (130-400); White Blood Cell (WBC) Count 6.8 thou/uL (4.8-10.8)
[2019-11-27 17:34] LABS: BHCG - Serum Negative (NEGATIVE); Pregs Control Background? CLEAR/WHITE (CLR/WHITE); Pregs Control Bar Appear? YES (CONTROL BAR)
[2019-11-27 17:49] LABS: ALT (SGPT) 11 U/L (8-55); AST (SGOT) 14 U/L (5-34); Albumin 4.2 g/dL (3.5-5.0); Alkaline Phosphatase 54 U/L (40-110); Anion Gap 10 mmol/L (10-20); BUN (Urea Nitrogen) 7 mg/dL (7.0-18.7); Bilirubin, Total 0.5 mg/dL (0.2-1.2); Calc. Creatinine Clearance 0 mL/min (70-130); Calcium 8.4 mg/dL (7.8-10.44); Carbon Dioxide 24 mmol/L (22-29); Chloride 109 mmol/L (98-107); Estimated GFR-MDRD Greater than 90; Globulin 2.5 g/dL (2.4-3.5); Glucose 97 mg/dL (70-105); Magnesium 1.9 mg/dL (1.6-2.6); Potassium 3.6 mmol/L (3.5-5.1); Protein, Total 6.7 g/dL (6.0-8.3); Sodium 139 mmol/L (136-145)
== END 2019-11-27 19:05 | disposition home or self-care (01) ==
LOC: ERS 16:40
DX: R11.2 Nausea with vomiting, unspecified (principal); R10.9 Unspecified abdominal pain; R10.84 Generalized abdominal pain; F17.210 Nicotine dependence, cigarettes, uncomplicated
CPT/HCPCS: 36415; 80053; 83690; 83735; 84703; 85025; 96361; 96372; 96374; 96375; J0500; J1885; J2405

== ENCOUNTER 2020-04-28 15:34 | Emergency (ER) | payer SELFPAY ==
--- NOTE | 2020-04-28 16:18 | RAD ---
RIGHT FOREARM TWO VIEWS: 04/28/20 HISTORY: Laceration. COMPARISON: None. FINDINGS: There is no radiopaque foreign object. Along the dorsal medial aspect of the forearm there is a larg e laceration with subcutaneous gas. No underlying fracture. IMPRESSION: No fracture nor radiopaque foreign object. POS: [facility]
[2020-04-28] MEDS ORDERED: Acetaminophen 500 MG TAB ONE (16:19)
[2020-04-28] MEDS ORDERED: Ibuprofen 200 MG TAB ONE (16:19)
[2020-04-28] MEDS ORDERED: Bupivacaine 0.5% 10 ML VIAL ONE ×3 (16:19→17:19)
== END 2020-04-28 18:25 | disposition home or self-care (01) ==
LOC: ERS 15:34
DX: S51.811A Laceration without foreign body of right forearm, initial encounter (principal); F17.210 Nicotine dependence, cigarettes, uncomplicated; W25.XXXA Contact with sharp glass, initial encounter
CPT/HCPCS: 12004; J3490

== ENCOUNTER 2020-04-30 17:44 | Emergency (ER) | payer SELFPAY | END 2020-04-30 18:38 | disposition left against medical advice (07) | LOC: ERS 17:44 | DX: Z53.21 Procedure and treatment not carried out due to patient leaving prior to being seen by health care provider (principal) ==

== ENCOUNTER 2020-09-01 20:45 | Emergency (ER) | payer SELFPAY ==
[2020-09-01] MEDS ORDERED: Ketorolac Tromethamine 30 MG/ML VIAL ONE (21:15)
[2020-09-01 21:26] LABS: Bilirubin Negative (Negative); Blood, Urine Large (Negative); Glucose, Urine (Dipstick) Negative (Negative); Ketone, Urine 15 mg/dL (Negative); Leukocyte Negative (Negative); Nitrite Negative (Negative); Protein, Urine (Dipstick) Trace mg/dL (Neg-Trace)
[2020-09-01 21:27] LABS: Clarity Cloudy (Clear)
[2020-09-01 21:29] LABS: Pregnancy Test - Urine (BHCG) Negative (Negative); Pregu Control Background? CLEAR/WHITE (CLR/WHITE); Pregu Control Bar Appear? YES (CONTROL BAR)
[2020-09-01 21:33] LABS: RBC/HPF 0-3 HPF (0-3)
[2020-09-01 21:33] LABS: BHCG - Serum Negative (NEGATIVE); Pregs Control Background? CLEAR/WHITE (CLR/WHITE); Pregs Control Bar Appear? YES (CONTROL BAR)
[2020-09-01 21:34] LABS: Bacteria/HPF 1+ HPF (None Seen)
[2020-09-01 21:42] LABS: ALT (SGPT) 13 U/L (8-55); AST (SGOT) 17 U/L (5-34); Albumin 4.9 g/dL (3.5-5.0); Alkaline Phosphatase 59 U/L (40-110); Anion Gap 15 mmol/L (10-20); BUN (Urea Nitrogen) 8 mg/dL (7.0-18.7); Bilirubin, Total 0.7 mg/dL (0.2-1.2); Calc. Creatinine Clearance 0 mL/min (70-130); Calcium 9.8 mg/dL (7.8-10.44); Carbon Dioxide 25 mmol/L (22-29); Chloride 105 mmol/L (98-107); Globulin 2.9 g/dL (2.4-3.5); Glucose 107 mg/dL (70-105); Lipase 5 U/L (8-78); Potassium 3.4 mmol/L (3.5-5.1); Protein, Total 7.8 g/dL (6.0-8.3); Sodium 142 mmol/L (136-145)
[2020-09-01 21:45] LABS: #Basophils 0.1 thou/uL (0.0-0.2); #Eosinphils 0.1 thou/uL (0.0-0.7); #Lymphocytes 2.2 thou/uL (1.20-3.40); #Monocytes 0.6 thou/uL (0.11-0.59); #Neutrophils 5.4 thou/uL (1.40-6.50); %Basophils 1.5 % (0.0-1.0); %Eosinophils 0.8 % (0.0-10.0); %Lymphocytes 26.3 % (21.0-51.0); %Monocytes 7.5 % (0.0-10.0); %Neutrophils 63.9 % (42.0-75.0); Hemoglobin 13.6 g/dL (12.0-16.0); Mean Corpuscular HGB CONC 36.4 g/dL (32.0-36.0); Mean Corpuscular Hemoglobin 32.1 pg (27.0-31.0); Mean Corpuscular Volume 88.1 fL (78.0-98.0); Mean Platelet Volume 7.3 fL (7.4-10.4); Platelet Count 334 thou/uL (130-400); RBC Distribution Width 12.4 % (11.5-14.5); Red Blood Cell (RBC) Count 4.23 mill/uL (4.20-5.40); White Blood Cell (WBC) Count 8.4 thou/uL (4.8-10.8)
[2020-09-03 22:55] LABS: Chlamydia by PCR Not Detected (NotDetected); GC by PCR Not Detected (NotDetected)
== END 2020-09-01 22:31 | disposition home or self-care (01) ==
LOC: ERS 20:45
DX: R10.30 Lower abdominal pain, unspecified (principal); R19.7 Diarrhea, unspecified; F17.210 Nicotine dependence, cigarettes, uncomplicated; R10.814 Left lower quadrant abdominal tenderness; R10.813 Right lower quadrant abdominal tenderness; R10.817 Generalized abdominal tenderness
CPT/HCPCS: 80053; 81003; 81015; 81025; 83690; 84703; 85025; 87480; 87491; 87510; 87591; 87660; 96374; J1885

== ENCOUNTER 2021-01-23 10:28 | Emergency (ER) | payer SELFPAY ==
[2021-01-23 11:15] LABS: Bilirubin Negative (Negative); Blood, Urine Negative (Negative); Clarity Turbid (Clear); Glucose, Urine (Dipstick) Normal (Negative); Ketone, Urine Negative (Negative); Leukocyte Negative Leu/uL (Negative); Nitrite Negative (Negative); Protein, Urine (Dipstick) Negative (Neg-Trace); Specific Gravity, Urine 1.013 (1.002-1.036); Urobilinogen Normal mg/dL (Less than 2); pH, Urine 7.5 (5.0-9.0)
[2021-01-23 11:16] LABS: Pregnancy Test - Urine (BHCG) POSITIVE (Negative); Pregu Control Background? CLEAR/WHITE (CLR/WHITE); Pregu Control Bar Appear? YES (CONTROL BAR); Specific Gravity 1.013 (1.002-1.036)
[2021-01-23] MEDS ORDERED: Acetaminophen 500 MG TAB ONE (12:47)
== END 2021-01-23 12:45 | disposition home or self-care (01) ==
LOC: ERS 10:28
DX: O99.891 Other specified diseases and conditions complicating pregnancy (principal); R10.9 Unspecified abdominal pain; F17.210 Nicotine dependence, cigarettes, uncomplicated
CPT/HCPCS: 36415; 81003; 81025; 84702; 99284

== ENCOUNTER 2021-01-30 13:14 | Emergency (ER) | payer SELFPAY ==
[2021-01-30 14:14] LABS: BHCG - Serum POSITIVE (NEGATIVE)
[2021-01-30 14:15] LABS: Pregs Control Background? CLEAR/WHITE (CLR/WHITE); Pregs Control Bar Appear? YES (CONTROL BAR)
[2021-01-30 14:42] LABS: #Basophils 0.1 thou/uL (0.0-0.2); #Eosinphils 0.1 thou/uL (0.0-0.7); #Lymphocytes 2.2 thou/uL (1.20-3.40); #Neutrophils 7.2 thou/uL (1.40-6.50); %Basophils 0.6 % (0.0-1.0); %Eosinophils 0.6 % (0.0-10.0); %Monocytes 9.3 % (0.0-10.0); %Neutrophils 68.5 % (42.0-75.0); Hemoglobin 12.6 g/dL (12.0-16.0); Mean Corpuscular HGB CONC 38.4 g/dL (32.0-36.0); Mean Corpuscular Hemoglobin 33.2 pg (27.0-31.0); Mean Corpuscular Volume 86.7 fL (78.0-98.0); Mean Platelet Volume 7.2 fL (7.4-10.4); Platelet Count 270 thou/uL (130-400); RBC Distribution Width 12.2 % (11.5-14.5); White Blood Cell (WBC) Count 10.5 thou/uL (4.8-10.8)
[2021-01-30 15:06] LABS: ALT (SGPT) 12 U/L (8-55); AST (SGOT) 13 U/L (5-34); Albumin 4.4 g/dL (3.5-5.0); Alkaline Phosphatase 41 U/L (40-110); Anion Gap 14 mmol/L (10-20); BUN (Urea Nitrogen) 7 mg/dL (7.0-18.7); Bilirubin, Total 0.7 mg/dL (0.2-1.2); Calc. Creatinine Clearance 0 mL/min (70-130); Calcium 10.1 mg/dL (7.8-10.44); Carbon Dioxide 22 mmol/L (22-29); Chloride 103 mmol/L (98-107); Globulin 2.5 g/dL (2.4-3.5); Glucose 93 mg/dL (70-105); Sodium 134 mmol/L (136-145)
[2021-01-30] MEDS ORDERED: Ondansetron PF 4 MG/2 ML Vial ONE (15:36)
[2021-01-30 16:06] LABS: Bilirubin Negative (Negative); Blood, Urine Negative (Negative); Clarity Turbid (Clear); Glucose, Urine (Dipstick) Normal (Negative); Ketone, Urine 60 mg/dL (Negative); Leukocyte Negative Leu/uL (Negative); Nitrite Negative (Negative); Protein, Urine (Dipstick) 30 mg/dL (Neg-Trace); RBC/HPF 0-3 HPF (0-3); Specific Gravity, Urine 1.031 (1.002-1.036)
[2021-01-30 16:20] LABS: Bacteria/HPF 1+ HPF (None Seen)
== END 2021-01-30 17:20 | disposition home or self-care (01) ==
LOC: ERS 13:14
DX: O21.9 Vomiting of pregnancy, unspecified (principal); O26.891 Other specified pregnancy related conditions, first trimester; R82.71 Bacteriuria; O99.331 Smoking (tobacco) complicating pregnancy, first trimester; F17.210 Nicotine dependence, cigarettes, uncomplicated; Z3A.01 Less than 8 weeks gestation of pregnancy
CPT/HCPCS: 36415; 76856; 80053; 81003; 81015; 84703; 85025; 96374; J2405

== ENCOUNTER 2021-02-22 21:27 | Emergency (ER) | payer SELFPAY ==
[2021-02-22] MEDS ORDERED: Ondansetron PF 4 MG/2 ML Vial ONE (21:53)
[2021-02-22 21:58] LABS: #Basophils 0.1 thou/uL (0.0-0.2); #Eosinphils 0.1 thou/uL (0.0-0.7); #Lymphocytes 2.6 thou/uL (1.20-3.40); #Neutrophils 5.4 thou/uL (1.40-6.50); %Basophils 1.3 % (0.0-1.0); %Eosinophils 0.8 % (0.0-10.0); %Lymphocytes 28.4 % (21.0-51.0); %Monocytes 10.6 % (0.0-10.0); %Neutrophils 58.9 % (42.0-75.0); Hemoglobin 11.6 g/dL (12.0-16.0); Mean Corpuscular HGB CONC 36.9 g/dL (32.0-36.0); Mean Corpuscular Hemoglobin 32.1 pg (27.0-31.0); Platelet Count 289 thou/uL (130-400); RBC Distribution Width 12.5 % (11.5-14.5); White Blood Cell (WBC) Count 9.1 thou/uL (4.8-10.8)
[2021-02-22 22:10] LABS: ALT (SGPT) 8 U/L (8-55); AST (SGOT) 13 U/L (5-34); Albumin 4.1 g/dL (3.5-5.0); Alkaline Phosphatase 36 U/L (40-110); Anion Gap 12 mmol/L (10-20); BUN (Urea Nitrogen) 6 mg/dL (7.0-18.7); Bilirubin, Total 0.6 mg/dL (0.2-1.2); Calc. Creatinine Clearance 0 mL/min (70-130); Calcium 9.5 mg/dL (7.8-10.44); Carbon Dioxide 22 mmol/L (22-29); Chloride 105 mmol/L (98-107); Globulin 2.8 g/dL (2.4-3.5); Glucose 90 mg/dL (70-105); Potassium 3.6 mmol/L (3.5-5.1); Protein, Total 6.9 g/dL (6.0-8.3); Sodium 135 mmol/L (136-145)
== END 2021-02-22 22:35 | disposition home or self-care (01) ==
LOC: ERS 21:27
DX: O21.0 Mild hyperemesis gravidarum (principal); Z3A.10 10 weeks gestation of pregnancy; O99.331 Smoking (tobacco) complicating pregnancy, first trimester; F17.210 Nicotine dependence, cigarettes, uncomplicated
CPT/HCPCS: 36415; 80053; 85025; 96374; J2405

== ENCOUNTER 2021-03-12 12:40 | Emergency (ER) | payer SELFPAY ==
[2021-03-12] MEDS ORDERED: Acetaminophen 500 MG TAB ONE (13:18)
[2021-03-12 13:23] LABS: Bacteria/HPF 4+ HPF (None Seen); Bilirubin Negative (Negative); Blood, Urine Negative (Negative); Clarity Turbid (Clear); Glucose, Urine (Dipstick) Normal (Negative); Ketone, Urine Trace mg/dL (Negative); Leukocyte 250 Leu/uL (Negative); Nitrite Negative (Negative); Protein, Urine (Dipstick) 30 mg/dL (Neg-Trace); RBC/HPF 0-3 HPF (0-3); Specific Gravity, Urine 1.032 (1.002-1.036); Urobilinogen Normal mg/dL (Less than 2)
[2021-03-12 14:02] LABS: ALT (SGPT) 7 U/L (8-55); AST (SGOT) 12 U/L (5-34); Alkaline Phosphatase 37 U/L (40-110); Anion Gap 9 mmol/L (10-20); BUN (Urea Nitrogen) 8 mg/dL (7.0-18.7); Bilirubin, Total 0.5 mg/dL (0.2-1.2); Calc. Creatinine Clearance 0 mL/min (70-130); Calcium 9.5 mg/dL (7.8-10.44); Carbon Dioxide 23 mmol/L (22-29); Chloride 105 mmol/L (98-107); Globulin 2.9 g/dL (2.4-3.5); Glucose 86 mg/dL (70-105); Potassium 3.9 mmol/L (3.5-5.1); Protein, Total 6.9 g/dL (6.0-8.3); Sodium 133 mmol/L (136-145)
[2021-03-12 14:18] LABS: #Basophils 0.1 thou/uL (0.0-0.2); #Eosinphils 0.1 thou/uL (0.0-0.7); #Lymphocytes 1.6 thou/uL (1.20-3.40); #Monocytes 0.7 thou/uL (0.11-0.59); #Neutrophils 4.7 thou/uL (1.40-6.50); %Basophils 0.7 % (0.0-1.0); %Eosinophils 1.5 % (0.0-10.0); %Lymphocytes 22.1 % (21.0-51.0); %Monocytes 9.1 % (0.0-10.0); %Neutrophils 66.5 % (42.0-75.0); Hemoglobin 11.5 g/dL (12.0-16.0); Mean Corpuscular HGB CONC 37.1 g/dL (32.0-36.0); Mean Corpuscular Hemoglobin 32.3 pg (27.0-31.0); Mean Platelet Volume 7.3 fL (7.4-10.4); Platelet Count 273 thou/uL (130-400); RBC Distribution Width 12.4 % (11.5-14.5); Red Blood Cell (RBC) Count 3.55 mill/uL (4.20-5.40); White Blood Cell (WBC) Count 7.1 thou/uL (4.8-10.8)
== END 2021-03-12 15:34 | disposition home or self-care (01) ==
LOC: ERS 12:40
DX: O23.91 Unspecified genitourinary tract infection in pregnancy, first trimester (principal); O99.891 Other specified diseases and conditions complicating pregnancy; R10.31 Right lower quadrant pain; O99.331 Smoking (tobacco) complicating pregnancy, first trimester; Z3A.12 12 weeks gestation of pregnancy
CPT/HCPCS: 80053; 81003; 81015; 85025

== ENCOUNTER 2021-04-12 14:48 | Emergency (ER) | payer MEDICAID ==
[2021-04-12 15:45] LABS: #Basophils 0.1 thou/uL (0.0-0.2); #Eosinphils 0.1 thou/uL (0.0-0.7); #Monocytes 0.8 thou/uL (0.11-0.59); #Neutrophils 6.8 thou/uL (1.40-6.50); %Basophils 1.1 % (0.0-1.0); %Eosinophils 1.1 % (0.0-10.0); %Lymphocytes 20.4 % (21.0-51.0); %Monocytes 8.1 % (0.0-10.0); %Neutrophils 69.3 % (42.0-75.0); Hemoglobin 10.8 g/dL (12.0-16.0); Mean Corpuscular HGB CONC 36.2 g/dL (32.0-36.0); Mean Corpuscular Hemoglobin 32.1 pg (27.0-31.0); Mean Corpuscular Volume 88.6 fL (78.0-98.0); Mean Platelet Volume 6.9 fL (7.4-10.4); Platelet Count 232 thou/uL (130-400); RBC Distribution Width 12.1 % (11.5-14.5); Red Blood Cell (RBC) Count 3.37 mill/uL (4.20-5.40); White Blood Cell (WBC) Count 9.8 thou/uL (4.8-10.8)
[2021-04-12 16:06] LABS: ALT (SGPT) 8 U/L (8-55); AST (SGOT) 13 U/L (5-34); Albumin 3.7 g/dL (3.5-5.0); Alkaline Phosphatase 43 U/L (40-110); Anion Gap 14 mmol/L (10-20); BUN (Urea Nitrogen) 5 mg/dL (7.0-18.7); Bilirubin, Total 0.4 mg/dL (0.2-1.2); Calc. Creatinine Clearance 0 mL/min (70-130); Calcium 9.4 mg/dL (7.8-10.44); Carbon Dioxide 19 mmol/L (22-29); Chloride 105 mmol/L (98-107); Globulin 2.7 g/dL (2.4-3.5); Glucose 84 mg/dL (70-105); Potassium 3.9 mmol/L (3.5-5.1); Protein, Total 6.4 g/dL (6.0-8.3); Sodium 134 mmol/L (136-145)
== END 2021-04-12 17:19 | disposition left against medical advice (07) ==
LOC: ERS 14:48
DX: Z53.21 Procedure and treatment not carried out due to patient leaving prior to being seen by health care provider (principal)
CPT/HCPCS: 80053; 84702; 85025

== ENCOUNTER 2021-09-16 00:43 | Emergency (ER) | payer OTHER | END 2021-09-16 01:16 | LOC: ERS 00:43 | DX: Z53.21 Procedure and treatment not carried out due to patient leaving prior to being seen by health care provider (principal) ==

== ENCOUNTER 2021-09-18 03:21 | Emergency (ER) | payer OTHER | END 2021-09-18 04:19 | LOC: ERS 03:21 | DX: O60.03 Preterm labor without delivery, third trimester (principal); Z3A.39 39 weeks gestation of pregnancy | CPT/HCPCS: 99284 ==

== ENCOUNTER 2023-01-17 05:37 | Emergency (ER) | payer SELFPAY ==
[2023-01-17] MEDS ORDERED: Ketorolac Tromethamine 30 MG/ML VIAL ONE (07:16)
[2023-01-17] MEDS ORDERED: Dexamethasone 10 MG/ML VIAL ONE (07:16)
[2023-01-17 07:20] LABS: #Basophils 0.1 thou/uL (0.0-0.2); #Eosinphils 0.1 thou/uL (0.0-0.7); #Neutrophils 7.9 thou/uL (1.40-6.50); %Basophils 0.4 % (0.0-1.0); %Eosinophils 0.8 % (0.0-10.0); %Lymphocytes 20.2 % (21.0-51.0); %Monocytes 8.8 % (0.0-10.0); %Neutrophils 69.4 % (42.0-75.0); Hematocrit 30.1 % (36.0-47.0); Hemoglobin 10.8 g/dL (12.0-16.0); Mean Corpuscular HGB CONC 35.9 g/dL (32.0-36.0); Mean Corpuscular Hemoglobin 29.5 pg (27.0-31.0); Mean Corpuscular Volume 82.2 fl (78.0-98.0); Mean Platelet Volume 9.4 fL (7.4-10.4); Platelet Count 348 10x3/uL (130-400); RBC Distribution Width 13.4 % (11.5-14.5); Red Blood Cell (RBC) Count 3.66 mill/uL (4.20-5.40); White Blood Cell (WBC) Count 11.4 10x3/uL (4.8-10.8)
[2023-01-17 07:51] LABS: ALT (SGPT) 10 U/L (8-55); AST (SGOT) 11 U/L (5-34); Albumin 4.5 g/dL (3.5-5.0); Alkaline Phosphatase 61 U/L (40-110); Anion Gap 13 mmol/L (10-20); BUN (Urea Nitrogen) 10 mg/dL (7.0-18.7); Bilirubin, Total 0.6 mg/dL (0.2-1.2); Calc. Creatinine Clearance 0 mL/min (70-130); Calcium 9.3 mg/dL (7.8-10.44); Carbon Dioxide 24 mmol/L (22-29); Chloride 105 mmol/L (98-107); Estimated GFR 125; Globulin 2.4 g/dL (2.4-3.5); Glucose 109 mg/dL (70-105); Potassium 3.6 mmol/L (3.5-5.1); Protein, Total 6.9 g/dL (6.0-8.3); Sodium 138 mmol/L (136-145)
[2023-01-17] MEDS ORDERED: D5W IVPB SCH (08:15)
[2023-01-17] MEDS ORDERED: ADMIXTURE FEE CHEMO IVPB SCH (08:15)
[2023-01-17] MEDS ORDERED: CLINDAMYCIN IVPB SCH (08:15)
[2023-01-17] MEDS ORDERED: Iopamidol-370 76% 500 ML MDV (1 ML CHARGE) ONE (08:57)
== END 2023-01-17 11:58 | disposition home or self-care (01) ==
LOC: ERS 05:37
DX: J36 Peritonsillar abscess (principal)
CPT/HCPCS: 36415; 70491; 80053; 83605; 84702; 85025; 87040; 87430; 96365; 96372; 96375; J1100; J1885; J3490; Q9967

== ENCOUNTER 2023-06-24 12:39 | Emergency (ER) | payer MEDICAID, SELFPAY ==
[2023-06-24] MEDS ORDERED: Ondansetron PF 4 MG/2 ML Vial ONE (13:17)
[2023-06-24 13:29] LABS: #Basophils Less than 0.03 10x3/uL (0.0-0.2); #Eosinphils Less than 0.03 10x3/uL (0.0-0.7); %Basophils 0.1 % (0.0-1.0); %Eosinophils 0.3 % (0.0-10.0); %Lymphocytes 7.9 % (21.0-51.0); %Monocytes 8.1 % (0.0-10.0); %Neutrophils 83.2 % (42.0-75.0); Hematocrit 27.3 % (36.0-47.0); Hemoglobin 10.2 g/dL (12.0-16.0); Mean Corpuscular HGB CONC 37.4 g/dL (32.0-36.0); Mean Corpuscular Hemoglobin 31.3 pg (27.0-31.0); Mean Corpuscular Volume 83.7 fL (78.0-98.0); Mean Platelet Volume 9.6 fL (7.4-10.4); Platelet Count 221 10x3/uL (130-400); RBC Distribution Width 13.7 % (11.5-14.5); Red Blood Cell (RBC) Count 3.26 mill/uL (4.20-5.40)
[2023-06-24 13:41] LABS: Bilirubin Negative (Negative); Blood, Urine Negative (Negative); CAUTI Indications for Culture Pregnancy; Clarity Turbid (Clear); Glucose, Urine (Dipstick) Normal (Negative); Ketone, Urine 10 mg/dL (Negative); Leukocyte 25 Leu/uL (Negative); Nitrite Negative (Negative); Protein, Urine (Dipstick) 30 mg/dL (Neg-Trace); RBC/HPF 0-3 HPF (0-3); Specific Gravity, Urine 1.025 (1.002-1.036); WBC/HPF 0-3 HPF (0-3)
[2023-06-24 13:47] LABS: ALT (SGPT) 11 U/L (8-55); AST (SGOT) 12 U/L (5-34); Albumin 3.8 g/dL (3.5-5.0); Alkaline Phosphatase 44 U/L (40-110); Anion Gap 15 mmol/L (10-20); BUN (Urea Nitrogen) 4 mg/dL (7.0-18.7); Bilirubin, Total 0.3 mg/dL (0.2-1.2); Calc. Creatinine Clearance 0 mL/min (70-130); Calcium 8.8 mg/dL (7.8-10.44); Carbon Dioxide 20 mmol/L (22-29); Chloride 102 mmol/L (98-107); Estimated GFR 128; Globulin 2.5 g/dL (2.4-3.5); Glucose 99 mg/dL (70-105); Lipase 5 U/L (8-78); Potassium 3.4 mmol/L (3.5-5.1); Protein, Total 6.3 g/dL (6.0-8.3); Sodium 134 mmol/L (136-145)
[2023-06-24 13:51] LABS: Bacteria/HPF 2+ HPF (None Seen); Urine Culture Reflex Yes Yes
== END 2023-06-24 15:02 | disposition home or self-care (01) ==
LOC: ERS 12:39
DX: K59.00 Constipation, unspecified (principal); N39.0 Urinary tract infection, site not specified; R11.2 Nausea with vomiting, unspecified
CPT/HCPCS: 36415; 74018; 76801; 80053; 81001; 83690; 84702; 85025; 87086; 87186; 96361; 96374; J2405